=== PATIENT | male | born 1985 | race Caucasian/White ===

== ENCOUNTER 2018-03-22 20:28 | Emergency (ER) | payer SELFPAY ==
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
--- NOTE | 2018-03-23 00:07 | ED PDOC ---
- ECG O2 Sat by Pulse Oximetry: 95 Medical Decision Making Medical Decision Makin:00 Patient endorsed to me by Dr. Yates pending CT and sobriety. 00:28 CT HEAD FINDINGS: Brain: Unremarkable. No significant white matter disease. No edema. No intracranial mass, mass effect, or midline shift. Ventricles: Unremarkable. No ventriculomegaly. Bones/joints: Unremarkable. No acute fracture. Soft tissues: Unremarkable. Sinuses: Unremarkable as visualized. No acute sinusitis. Mastoid air cells: Unremarkable as visualized. No mastoid effusion. IMPRESSION: No acute intracranial abnormality. 05:45 Patient is awake, alert, and oriented x3 with steady gait and fluent speech. Patient is stable upon discharge. Scribe Attestation: Documented by Finesse Davila, acting as a scribe for Jamel Gerardo MD. Provider Scribe Attestation: All medical record entries made by the Scribe were at my direction and personally dictated by me. I have reviewed the chart and agree that the record accurately reflects my personal performance of the history, physical exam, medical decision making, and the department course for this patient. I have also personally directed, reviewed, and agree with the discharge instructions and disposition. Disposition Counseled Patient/Family Regarding: Studies Performed, Diagnosis - Clinical Impression Clinical Impression: Alcohol abuse with intoxication - POA Present On Arrival: None - Disposition Disposition: Routine/Home Disposition Time: 05:15 Condition: STABLE Instructions: Effects of Alcohol on Your Health Forms: [facility] (Israeli) Print Language: SLOVAK
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
[2018-03-23 01:46] VITALS: RESP 16
[2018-03-23 03:03] VITALS: O2SAT 95
[2018-03-23 05:58] VITALS: BP 100/60; PULSE 80; TEMP 97.8
== END 2018-03-23 06:12 | disposition home or self-care (01) ==
LOC: H.ER 20:28
DX: F10.129 Alcohol abuse with intoxication, unspecified (principal); S09.90XA Unspecified injury of head, initial encounter; Y92.89 Other specified places as the place of occurrence of the external cause
CPT/HCPCS: 70450; 82948; 99283; G0480